=== PATIENT | male | born 1940 | race Caucasian/White ===

== ENCOUNTER 2021-02-03 22:28 | Observation (INO) | payer OTHER, MEDICARE ==
[~2021-02-03] VITALS: Ht 170.2 cm; Wt 78.0 kg
[2021-02-04] MEDS ORDERED: WARF7.5 PO (00:55)
[2021-02-04] MEDS ORDERED: MAGNESIUM OXID500 MG PO (00:56)
[2021-02-04] MEDS ORDERED: WARF5 PO (00:56)
[2021-02-04] MEDS ORDERED: METO50ER PO (00:57)
[2021-02-04] MEDS ORDERED: OMEP20ER PO (00:57)
[2021-02-04] MEDS ORDERED: SILD50TA PO (00:59)
[2021-02-04] MEDS ORDERED: ERGO400 PO (01:00)
[2021-02-04] MEDS ORDERED: TRAZ50 PO (01:00)
[2021-02-04] MEDS ORDERED: ASCO500 PO (01:00)
[2021-02-04 01:11] LABS: BASOPHILS ABSOLUTE AUTO 0.03 K/mm3 (0.00-0.23); BASOPHILS PERCENT AUTO 0 % (0-2); EOSINOPHILS ABSOLUTE AUTO 0.02 K/mm3 (0.00-0.68); EOSINOPHILS PERCENT AUTO 0 % (0-6); Hematocrit 34.4 % (37.0-53.0); Hemoglobin 11.2 g/dL (13.5-17.5); IMMATURE GRAN ABSOLUTE AUTO 0.09 K/mm3 (0.00-0.10); IMMATURE GRAN PERCENT AUTO 1 % (0-1); LYMPHOCYTES ABSOLUTE AUTO 0.52 K/mm3 (0.84-5.20); LYMPHOCYTES PERCENT AUTO 6 % (21-46); MONOCYTES ABSOLUTE AUTO 0.67 K/mm3 (0.16-1.47); MONOCYTES PERCENT AUTO 8 % (4-13); Mean Corpuscular HGB 29.4 pg (26.0-34.0); Mean Corpuscular HGB Conc 32.6 g/dL (31.5-36.5); Mean Corpuscular Volume 90 fL (80-100); Mean Platelet Volume 11.1 fL (9.1-12.4); NEUTROPHILS ABSOLUTE AUTO 7.03 K/mm3 (1.96-9.15); NEUTROPHILS PERCENT AUTO 84 % (41-73); Platelet Count 155 K/mm3 (150-400); RDW Coefficient Variation 14.2 % (11.7-14.2); RDW Standard Deviation 46.5 fL (35.1-46.3); Red Blood Cell Count 3.81 M/mm3 (4.30-5.90); White Blood Cell Count 8.36 K/mm3 (4.00-11.30)
[2021-02-04 01:29] LABS: International Normalized Ratio 3.55; Prothrombin Time Results 35.4 Sec (9.7-11.5)
[2021-02-04 01:37] LABS: Albumin, Blood 3.4 g/dL (3.4-5.0); Albumin/Globulin Ratio 0.8 (0.8-1.8); Bilirubin, Total 1.2 mg/dL (0.1-1.0); Bun/Creatinine Ratio 27.2 (12.0-20.0); Calcium, Blood 9.3 mg/dL (8.5-10.1); Creatinine, Blood 1.69 mg/dL (0.60-1.20); Globulin, Blood 4.4 g/dL (2.2-4.0); Potassium, Blood 4.6 mmol/L (3.5-5.5); Total Protein, Blood 7.8 g/dL (6.4-8.2)
--- NOTE | 2021-02-04 13:32 | NUR ---
ARRIVAL TO UNIT PT ARRIVED AT APPROX 0900 THIS AM. ABLE TO TRANSFER SELF TO BATHROOM AND BED WITH SBY ASSIST. NO WEAKNESS NOTED. REPORTS PAIN ON R SIDE RIBS WITH DEEP BREATHING AND WITH AMBULATION. ABLE TO TAKE DEEP BREATHS AT THIS TIME. USES PILLOW TO SPLINT. MEDICATED FOR PAIN PER EMAR. TOLERATES WELL AND CALLS APPROPRIATLY. TOLERATING PO WELL. CURRENTLY AT BEDSIDE WITH PATIENT. CALL LIGHT IN REACH. PT DENIES FURTHER NEEDS AT THIS TIME.
[2021-02-04] MEDS ORDERED: ATOR40TA PO (14:31)
[2021-02-04] MEDS ORDERED: BUPR150ER PO (14:32)
[2021-02-04] MEDS ORDERED: BUSP10 PO (14:33)
[2021-02-04] MEDS ORDERED: DOXY100 PO (14:34)
[2021-02-04] MEDS ORDERED: Flonase 0.05% N16 GM (14:35)
[2021-02-04] MEDS ORDERED: FURO20 PO (14:36)
[2021-02-04] MEDS ORDERED: LEVSOD75 PO (14:37)
[2021-02-04] MEDS ORDERED: Prinivil10 MG PO (14:38)
[2021-02-04] MEDS ORDERED: NITR.4SL SL (14:39)
--- NOTE | 2021-02-04 16:19 | NUR ---
SHIFT SUMMARY NO ACUTE CHANGES SINCE ARRIVAL TO UNIT. PT SBY ASSIST WALKING TO BATHROOM. USING INCENTIVE SPIROMETRY AND DEEP BREATHING IN ROOM. SHORTNESS OF BREATH WITH AMBULATION BUT DECLINES SOB OTHERWISE. TOLERATING PO WELL. PLAN IS FOR XRAY IN THE AM AND POSSIBLE DISCHARGE.
--- NOTE | 2021-02-05 03:35 | NUR ---
SHIFT SUMMARY: RIGHT RIB FX PATIENT IS ALERT AND ORIENTED X4. HE HAS BEEN AWAKE MAJORITY OF THE SHIFT. VS ARE WNL AND IS ON RA. PAIN IS MANAGED WITH PO DILAUDID AND IV FENTANYL. PATIENT REPORTS THAT HE SELF CATH'S HIMSELF AND HAS "BEEN DOING IT FOR A WHILE NOW". HE HAS BEEN VOIDING AND TOLERATING PO INTAKE. HE IS CURRENTLY SITTING UP ON THE SIDE OF THE BED TO TRY AND BE COMFORTABLE. CALLS APPROPRIATELY. CALL LIGHT WITHIN REACH. THE PLAN IS TO HAVE AN XRAY LATER TODAY BUT ALSO NEEDS TO HAVE A CT/XRAY DISC SENT HOME WITH HIM.
[2021-02-05 05:17] LABS: BASOPHILS ABSOLUTE AUTO 0.03 K/mm3 (0.00-0.23); BASOPHILS PERCENT AUTO 0 % (0-2); EOSINOPHILS PERCENT AUTO 1 % (0-6); Hematocrit 35.5 % (37.0-53.0); Hemoglobin 11.3 g/dL (13.5-17.5); IMMATURE GRAN ABSOLUTE AUTO 0.04 K/mm3 (0.00-0.10); IMMATURE GRAN PERCENT AUTO 1 % (0-1); LYMPHOCYTES ABSOLUTE AUTO 0.53 K/mm3 (0.84-5.20); LYMPHOCYTES PERCENT AUTO 7 % (21-46); MONOCYTES ABSOLUTE AUTO 0.75 K/mm3 (0.16-1.47); MONOCYTES PERCENT AUTO 10 % (4-13); Mean Corpuscular HGB Conc 31.8 g/dL (31.5-36.5); Mean Corpuscular Volume 91 fL (80-100); Mean Platelet Volume 11.2 fL (9.1-12.4); NEUTROPHILS PERCENT AUTO 81 % (41-73); Platelet Count 159 K/mm3 (150-400); RDW Coefficient Variation 14.3 % (11.7-14.2); White Blood Cell Count 7.65 K/mm3 (4.00-11.30)
[2021-02-05 05:31] LABS: International Normalized Ratio 3.58; Prothrombin Time Results 35.6 Sec (9.7-11.5)
[2021-02-05 05:50] LABS: Bun/Creatinine Ratio 22.8 (12.0-20.0); Calcium, Blood 9.4 mg/dL (8.5-10.1); Creatinine, Blood 1.62 mg/dL (0.60-1.20); Potassium, Blood 4.7 mmol/L (3.5-5.5)
[2021-02-05] MEDS ORDERED: HYDMOR2 PO (12:32)
--- NOTE | 2021-02-05 15:06 | NUR ---
DISCHARGE: PACKET PRINTED AND PT EDUCATED. GIVEN SCRIPT AND IMAGING FILM. LEFT UNIT IN WHEELCHAIR WITH JACQUELINE CHOUDHARY AT ABOUT 1300
== END 2021-02-05 13:09 | disposition home or self-care (01) ==
LOC: ER 22:28 → ERHOLD 22:29 → SURS 22:29
PROVIDERS: Physician Assistant; ADMIT Surgery
DX: S22.41XA Multiple fractures of ribs, right side, initial encounter for closed fracture (principal); F17.210 Nicotine dependence, cigarettes, uncomplicated; W19.XXXA Unspecified fall, initial encounter; Y92.59 Other trade areas as the place of occurrence of the external cause; Z79.01 Long term (current) use of anticoagulants; Z88.8 Allergy status to other drugs, medicaments and biological substances; Z88.1 Allergy status to other antibiotic agents
CPT/HCPCS: 36415; 71046; 71250; 80048; 80053; 85025; 85610; 86850; 86900; 86901; 96361; 96374; 96375; 96376; 99285-25; A9270; G0378; J3010; J7030; J7120